=== PATIENT | male | born 1985 | race Two or more races ===

== ENCOUNTER 2019-03-01 11:40 | Emergency (ER) | payer SELFPAY ==
[2019-03-01] MEDS ORDERED: KETOROLAC TROMETHAMINE INJ/PF 30 MG/1 ML SDV IV ONE (12:52)
[2019-03-01] MEDS ORDERED: ONDANSETRON HCL INJ/PF 4 MG/2 ML SDV IV ONE (12:52)
[2019-03-01] MEDS ORDERED: NORMAL SALINE 1000 ML 1,000 ML IV ONE (12:52)
--- NOTE | 2019-03-01 12:53 | ER Document Report ---
ED Medical Screen (RME) - General Chief Complaint: Vomiting Stated Complaint: VOMITING Time Seen by Provider: 03/01/19 12:51 Mode of Arrival: Ambulatory Information source: Patient Notes: Patient presents complaining of nausea vomiting diarrhea for the past week. Patient complains of abdominal pain around mid abdominal area. Patient also complains of headache. Patient reports multiple skin lesions worrisome for possible abscess. Patient is concerned that he may have been bit by spiders. Patient denies any fever. I have greeted and performed a rapid initial assessment of this patient. A comprehensive ED assessment and evaluation of the patient, analysis of test results and completion of the medical decision making process will be conducted by additional ED providers. TRAVEL OUTSIDE OF THE [place] IN LAST 30 DAYS: No - Related Data Allergies/Adverse Reactions: No Known Allergies Allergy (Verified 03/01/19 11:48) Physical Exam - Vital signs Vitals: Temp Pulse Resp BP Pulse Ox 98.1 F 110 H 18 163/94 H 97 03/01/19 11:53 03/01/19 11:53 03/01/19 11:53 03/01/19 11:53 03/01/19 11:53 - Abdominal Inspection: Obese Tenderness: Tender - Abdominal tenderness across mid abdominal area Course - Vital Signs Vital signs: Temp Pulse Resp BP Pulse Ox 98.1 F 110 H 18 163/94 H 97 03/01/19 11:53 03/01/19 11:53 03/01/19 11:53 03/01/19 11:53 03/01/19 11:53
[2019-03-01 13:29] LABS: ABSOLUTE BASOPHILS # (AUTO) 0.1 10^3/uL (0.0-0.2); ABSOLUTE EOSINOPHILS # (AUTO) 0.4 10^3/uL (0.0-0.6); ABSOLUTE LYMPHOCYTES (AUTO) 1.4 10^3/uL (0.5-4.7); ABSOLUTE MONOCYTES (AUTO) 0.6 10^3/uL (0.1-1.4); HEMATOCRIT 42.9 % (37.9-51.0); HEMOGLOBIN 14.8 g/dL (13.5-17.0); LYMPHOCYTES % (AUTO) 16.8 % (13-45); MEAN CORPUSCULAR HGB CONC 34.5 g/dL (32.0-36.0); MEAN CORPUSCULAR VOLUME 90 fl (80-97); MONOCYTES % (AUTO) 7.3 % (3-13); PLATELET COUNT 261 10^3/uL (150-450); RED BLOOD COUNT 4.77 10^6/uL (4.35-5.55); RED CELL DISTRIBUTION WIDTH 14.5 % (11.5-14.0); SEGMENTED NEUTROPHILS % (AUTO) 69.9 % (42-78); TOTAL CELLS COUNTED % (AUTO) 100 %; WHITE BLOOD COUNT 8.5 10^3/uL (4.0-10.5)
[2019-03-01 13:32] LABS: APPEARANCE,URINE CLEAR; BILIRUBIN,URINE NEGATIVE (NEGATIVE); COLOR,URINE YELLOW; GLUCOSE, URINE NEGATIVE (NEGATIVE); KETONES,URINE NEGATIVE (NEGATIVE); LEUKOCYTE ESTERASE,URINE NEGATIVE (NEGATIVE); NITRITE,URINE NEGATIVE (NEGATIVE); PROTEIN,URINE NEGATIVE (NEGATIVE); URINE SPECIFIC GRAVITY 1.017; UROBILINOGEN,URINE NEGATIVE mg/dL (<2.0)
[2019-03-01 13:53] LABS: ALANINE AMINOTRANSFERASE 30 U/L (21-72); ALBUMIN 3.6 g/dL (3.5-5.0); ALKALINE PHOSPHATASE 89 U/L (38-126); ANION GAP 7 (5-19); ASPARTATE AMINO TRANSFERASE 18 U/L (17-59); BILIRUBIN,DIRECT 0.3 mg/dL (0.0-0.4); BILIRUBIN,TOTAL 0.4 mg/dL (0.2-1.3); BLOOD UREA NITROGEN 18 mg/dL (7-20); CALCIUM 9.2 mg/dL (8.4-10.2); CARBON DIOXIDE 26 mmol/L (22-30); CHLORIDE 109 mmol/L (98-107); GLUCOSE 132 mg/dL (75-110); LIPASE 70.6 U/L (23-300); POTASSIUM 4.3 mmol/L (3.6-5.0); SODIUM 141.8 mmol/L (137-145); TOTAL PROTEIN 6.6 g/dL (6.3-8.2)
[2019-03-01] MEDS ORDERED: RINGERS SOLUTION,LACTATED 1,000 ML IV ONE (16:43)
--- NOTE | 2019-03-01 17:42 | ER Document Report ---
ED General - General Chief Complaint: Vomiting Stated Complaint: VOMITING Time Seen by Provider: 03/01/19 12:51 Primary Care Provider: JANIE FAYE DO [NO LOCAL MD] - Follow up in 3-5 days Mode of Arrival: Ambulatory Notes: Patient is a 33 year old male that presents to the emergency department for chief complaint of nausea, vomiting diarrhea. Patient states his been having symptoms for about a week now, but mainly over the past 2 days, has had more vomiting. He is noticed that the vomiting was worse at work, he works as a safety technician, and hot conditions, and he thinks it is getting dehydrated. He has not noticed a decrease in urine or darker urine, but does state that he has been get ting fatigued at work over the past week. He denies having any associated chest pain, shortness of breath, difficulty breathing, dysuria hematuria. He states he has had some abdominal cramping, but denies any specific abdominal pain. Past Medical History: Denies chronic medical conditions Past Surgical History: Denies major surgical history Social History: Admits to occasional alcohol use, and tobacco use, denies illicit drug use. Family History: Reviewed and noncontributory for presenting illness Allergies: Reviewed, see documented allergy list. REVIEW OF SYSTEMS: Other than noted above, the 12 point review of systems was reviewed with the patient and were negative, all pertinent findings are included in the HPI. PHYSICAL EXAMINATION: Vital signs reviewed, nursing noted reviewed. GENERAL: Well-appearing, well-nourished and in no acute distress. HEAD: Atraumatic, normocephalic. EYES: Eyes appear normal, extraocular movements intact, sclera anicteric, conjunctiva are normal. ENT: nares patent, oropharynx clear without exudates. Moist mucous membranes. NECK: Normal range of motion, supple without lymphadenopathy LUNGS: Breath sounds clear to auscultation bilaterally and equal. No wheezes rales or rhonchi. HEART: Regular rate and rhythm without murmurs ABDOMEN: Soft, mild generalized abdominal discomfort with palpation, normoactive bowel sounds. No rebound, guarding, or rigidity. No masses appreciated. EXTREMITIES: Nontender, good range of motion, no pitting or edema. NEUROLOGICAL: No focal neurological deficits. Moves all extremities spontaneously Motor and sensory grossly intact on exam. PSYCH: Normal mood, normal affect. SKIN: Warm, Dry, normal turgor, no rashes or lesions noted on exposed skin TRAVEL OUTSIDE OF THE [place] IN LAST 30 DAYS: No - Related Data Allergies/Adverse Reactions: No Known Allergies Allergy (Verified 03/01/19 11:48) Past Medical History - General Information source: Patient - Social History Smoking Status: Current Every Day Smoker Family History: Reviewed & Not Pertinent Physical Exam - Vital signs Vitals: Temp Pulse Resp BP Pulse Ox 98.1 F 110 H 18 163/94 H 97 03/01/19 11:53 03/01/19 11:53 03/01/19 11:53 03/01/19 11:53 03/01/19 11:53 Course - Re-evaluation Re-evalutation: Patient seen and examined vital signs reviewed. Laboratory data and/or imaging were ordered as appropriate for the patient's presenting symptoms and complaint, with consideration of any critical or life threatening conditions that may be associated with their obtained history and exam as noted above. Patient was treated with IV fluid bolusing x2 L, and Zofran Results were reviewed when available and demonstrated mild elevation in creatinine, otherwise unremarkable blood work The patient was re-evaluated and was stable and feeling much improved Evaluation was most consistent with nausea vomiting diarrhea, I am concerned this patient may be experiencing heat exhaustion while at work, advised to him to drink plenty of fluids including electrolyte infuse fluids such as Pedialyte, before and after work, to maintain his hydration adequately. Results were discussed with the patient at this point, after careful consideration I feel that that patient can be discharged from the emergency department, the patient was educated treatments and reasons to return to the emergency department based on their presumed diagnosis as noted above, they were advised to followup with a primary care physician in 2-3 days. Patient was agreeable to plan of care. *Note is created using voice recognition software and may contain spelling, syntax or grammatical errors. Laboratory 03/01/19 03/01/19 03/01/19 13:00 13:00 13:00 WBC 8.5 RBC 4.77 Hgb 14.8 Hct 42.9 MCV 90 MCH 31.0 MCHC 34.5 RDW 14.5 H Plt Count 261 Seg Neutrophils % 69.9 Lymphocytes % 16.8 Monocytes % 7.3 Eosinophils % 5.0 Basophils % 1.0 Absolute Neutrophils 6.0 Absolute Lymphocytes 1.4 Absolute Monocytes 0.6 Absolute Eosinophils 0.4 Absolute Basophils 0.1 Sodium 141.8 Potassium 4.3 Chloride 109 H Carbon Dioxide 26 Anion Gap 7 BUN 18 Creatinine 1.34 H Est GFR ( Amer) > 60 Est GFR (Non-Af Amer) > 60 Glucose 132 H Calcium 9.2 Total Bilirubin 0.4 Direct Bilirubin 0.3 Neonat Total Bilirubin Not Reportable Neonat Direct Bilirubin Not Reportable Neonat Indirect Bili Not Reportable AST 18 ALT 30 Alkaline Phosphatase 89 Total Protein 6.6 Albumin 3.6 Lipase 70.6 Urine Color YELLOW Urine Appearance CLEAR Urine pH 5.0 Ur Specific [place] 1.017 Urine Protein NEGATIVE Urine Glucose (UA) NEGATIVE Urine Ketones NEGATIVE Urine Blood NEGATIVE Urine Nitrite NEGATIVE Urine Bilirubin NEGATIVE Urine Urobilinogen NEGATIVE Ur Leukocyte Esterase NEGATIVE Urine WBC (Auto) 1 Squamous Epi Cells Auto <1 Urine Mucus (Auto) RARE Urine Ascorbic Acid NEGATIVE - Vital Signs Vital signs: Temp Pulse Resp BP Pulse Ox 97.8 F 86 16 147/89 H 100 03/01/19 18:42 03/01/19 18:42 03/01/19 18:42 03/01/19 18:42 03/01/19 18:42 - Laboratory Result Diagrams: 03/01/19 13:00 03/01/19 13:00 Laboratory results interpreted by me: 03/01/19 03/01/19 13:00 13:00 RDW 14.5 H Chloride 109 H Creatinine 1.34 H Glucose 132 H Discharge - Discharge Clinical Impression: Nausea vomiting and diarrhea Condition: Stable Disposition: HOME, SELF-CARE Instructions: Vomiting ([facility]) Additional Instructions: Please drink plenty of fluids, before, during and after work, you can use Pedialyte, half diluted Gatorade, or water, recommend drinking plenty fluids throughout the day so that you maintain your hydration, you have been prescribed an antinausea medicine to take as well if needed. Prescriptions: Ondansetron [Zofran Odt 4 mg Tablet] 1 tab PO Q8H PRN #15 tab.rapdis PRN Reason: For Nausea/Vomiting Forms: Return to Work Referrals: JANIE FAYE DO [NO LOCAL MD] - Follow up in 3-5 days
[2019-03-01 18:43] VITALS: BP 147/89
== END 2019-03-01 18:47 | disposition home or self-care (01) ==
LOC: ER 11:40
DX: R11.2 Nausea with vomiting, unspecified (principal); R19.7 Diarrhea, unspecified; R53.83 Other fatigue; R10.9 Unspecified abdominal pain; F17.200 Nicotine dependence, unspecified, uncomplicated
CPT/HCPCS: 99284; 96361; 96374; 96375; 36415; 83690; 85025; 80053; 81001; J1885; J2405; J7030; J7120